=== PATIENT | female | born 1960 | race Caucasian/White ===

== ENCOUNTER 2016-04-26 21:02 | Emergency (ER) | payer MEDICAID, OTHER ==
[~2016-04-26] VITALS: Ht 165.1 cm; Wt 72.6 kg
[~2016-04-26 21:02] MED LIST: PRED20TA PO
[2016-04-26] MEDS ORDERED: PRED20TA PO (22:12)
[2016-04-26] MEDS ORDERED: DOXY100T PO (22:12)
[2016-04-26 22:15] VITALS: BP 111/53
--- NOTE | 2016-04-26 22:15 | PHYS DOC ---
General Chief Complaint: cough Stated Complaint: COUGH CONGESTION Time Seen by MD: 22:09 Source: patient Exam Limitations: no limitations Problems: History of Present Illness Initial Comments Pt is 55/F to ED c/o cough/congestion and nasal drainage x few days. Also having ear pains no drainage/trauma/hearing change. No fever/chills/n/v/MCKEON. States she can hear wheezing. No sob or chest pain. Timing/Duration: getting worse, other Severity: moderate Modifying Factors: worse with movement, improves with rest Associated Symptoms: cough, malaise, other Allergies: Coded Allergies: Penicillins (Verified Allergy, Unknown, 11/08/15) Sulfa (Sulfonamide Antibiotics) (Verified Allergy, Unknown, 11/08/15) amlodipine (Verified Allergy, Unknown, 11/08/15) aspirin (Verified Allergy, Unknown, 11/08/15) bupropion (Verified Allergy, Unknown, 11/08/15) codeine (Verified Allergy, Unknown, 11/08/15) haloperidol (Verified Allergy, Unknown, 11/08/15) ibuprofen (Verified Allergy, Unknown, 11/08/15) meperidine (Verified Allergy, Unknown, 11/08/15) niacin (Verified Allergy, Unknown, 11/08/15) Past Medical History Medical History: GERD Surgical History: noncontributory Social History Smoker: cigarettes Alcohol: none Drugs: none Review of Systems Constitutional: denies chills, denies diaphoresis, denies fever, malaise EENTM: see HPI ear paindenies ear discharge Respiratory: see HPIdenies shortness of breath Cardiovascular: denies chest pain, denies palpitations, denies syncope Gastrointestinal: denies diarrhea, denies nausea, denies vomiting Genitourinary: denies dysuria, denies frequency, denies hematuria Musculoskeletal: denies back pain, denies joint swelling, denies neck pain Psychiatric/Neurological: denies headache, denies numbness, denies paresthesia Physical Exam General Appearance: WD/WN, no apparent distress Eyes: bilateral eye EOMI, bilateral eye PERRL, bilateral eye normal inspection Ear, Nose, Throat: hearing grossly normal, other (R TM erythema/bulge, clear nasal/PND) Neck: non-tender, supple Respiratory: chest non-tender, no respiratory distress, wheezing Cardiovascular: normal peripheral pulses, regular rate, rhythm Gastrointestinal: non tender, soft Back: no CVA tenderness, no vertebral tenderness Extremities: non-tender, normal inspection Neurologic/Psychiatric: accreditation specialist II-XII nml as tested, no motor/sensory deficits, alert, normal mood/affect, oriented x 3 Skin: normal color, warm/dry Departure Time of Disposition: 22:13 Disposition: 01 HOME, SELF-CARE Diagnosis: COPD exacerbation, R otitis media Condition: GOOD Patient Instructions: Chronic Obstructive Pulmonary Disease Exacerbation, Easy- to-Read, Otitis Media, Adult Additional Instructions: OTC tylenol as needed. Use home albuterol MDI, 2 puffs every 4 hours and as needed. Rx: prednisone, doxycycline, take with food as directed. Follow up with your doctor in 1-2 weeks. Return to ED with new or changing symptoms. RICHARD COREA DO Apr 26, 2016 22:15
[2016-04-26] MEDS ORDERED: DOXYCYCLINE HYCLATE 100 MG TABLET PO ONE (22:45)
[2016-04-26] MEDS ORDERED: PREDNISONE 20 MG TABLET PO ONE (22:45)
[2016-04-26] MEDS ORDERED: IPRATRPIUM/ALBUTEROL 0.5/2.5MG 3 ML NEBU. NEB ONE (22:45)
== END 2016-04-26 22:55 | disposition home or self-care (01) ==
LOC: ER 21:05
DX: J44.1 Chronic obstructive pulmonary disease with (acute) exacerbation (principal); H66.91 Otitis media, unspecified, right ear; R05 Cough; K21.9 Gastro-esophageal reflux disease without esophagitis; F17.210 Nicotine dependence, cigarettes, uncomplicated; Z88.0 Allergy status to penicillin; Z88.2 Allergy status to sulfonamides; Z88.8 Allergy status to other drugs, medicaments and biological substances; Z88.6 Allergy status to analgesic agent
CPT/HCPCS: 94640; 99283; J7512; J7620

== ENCOUNTER 2017-02-25 18:21 | Emergency (ER) | payer SELFPAY ==
[~2017-02-25] VITALS: Ht 165.1 cm; Wt 70.0 kg
[~2017-02-25 18:21] MED LIST changes: +DOXY100T PO
[2017-02-25] MEDS ORDERED: HYDROmorphone PF 1 MG/ML DISP.SYRIN ONE (19:16)
[2017-02-25] MEDS ORDERED: HYDROmorphone PF 1 MG/ML DISP.SYRIN IM ONE (19:30)
[2017-02-25] MEDS ORDERED: PRED20TA PO (20:05)
[2017-02-25] MEDS ORDERED: ACYC400T PO (20:05)
--- NOTE | 2017-02-25 20:06 | PHYS DOC ---
Past History Past Medical History: Arthritis, COPD, GERD, Pneumonia, Other Past Surgical History: Cholecystectomy, Tonsillectomy Alcohol Use: None Drug Use: None Adult General Chief Complaint Chief Complaint: RIB PAIN HPI HPI She is a pleasant 56-year-old female with a history of chronic back pain, chronic scleroderma, COPD, hypertension, peripheral neuropathy who presents with rib pain that began 2 days ago after a question will twisting injury. Patient is noted pain is worse with range of motion breathing movements specifically over that spot of her lower ribs on the right. She has some localized redness as well with no clear rash over the area the pain does wrap around to the lateral side. She denies any fevers, chills, nausea, vomiting, diarrhea, shortness of breath, chest pain only this rib pain is worsened with range of motion and direct pressure. She denies any direct trauma or falls. She denies any night sweats, weight loss or other symptoms. Patient does still smoke pack a day she is on a pain contract with her local physician for chronic narcotic use. Took her hydrocodone 7. 08/17/24 today which is not helping her symptoms. Because she is under pain contract she was she cannot be prescribed any narcotics from this facility she just was just wanting to ensure that she has no rib fracture. Review of Systems Review of Systems Constitutional: Denies fever or chills [] Eyes: Denies change in visual acuity, redness, or eye pain [] HENT: Denies nasal congestion or sore throat [] Respiratory: Denies cough or shortness of breath [] Cardiovascular: No additional information not addressed in HPI [] GI: She complains of right lower rib pain without nausea vomiting diarrhea or constipation : Denies dysuria or hematuria [] Musculoskeletal: Does have chronic lower back pain or joint pain nothing new today[] Integument: Denies rash or skin lesions she admits to some slight redness to her abdominal wall over the pain she is describing Neurologic: Denies headache, focal weakness or sensory changes [] Endocrine: Denies polyuria or polydipsia [] All other systems were reviewed and found to be within normal limits, except as documented in this note. Current Medications Current Medications Current Medications Medications (Trade) Dose Ordered Sig/Caesar Start Time Stop Time Status Last Admin Dose Admin Hydromorphone HCl (Dilaudid) 1 mg STK-MED ONCE 02/25/17 19:16 02/25/17 19:17 DC Allergies Allergies Allergies Coded Allergies Type Severity Reaction Last Updated Verified Penicillins Allergy Unknown 11/08/15 Yes Sulfa (Sulfonamide Antibiotics) Allergy Unknown 11/08/15 Yes amlodipine Allergy Unknown 11/08/15 Yes aspirin Allergy Unknown 11/08/15 Yes bupropion Allergy Unknown 11/08/15 Yes codeine Allergy Unknown 11/08/15 Yes haloperidol Allergy Unknown 11/08/15 Yes ibuprofen Allergy Unknown 11/08/15 Yes meperidine Allergy Unknown 11/08/15 Yes niacin Allergy Unknown 11/08/15 Yes Physical Exam Physical Exam Patient is mildly tachycardic upon arrival likely secondary to pain Constitutional: As patient is mildly obese significant debilitated secondary to medical problems she is splinting secondary to the pain over her right ribs. She is no acute distress no respiratory distress HENT: Normocephalic, atraumatic, bilateral external ears normal, dry mucous membranes with poor dentition, no oral exudates, nose normal. [] Eyes: PERRLA, EOMI, conjunctiva normal, no discharge. [] Neck: Normal range of motion, no tenderness, supple, no stridor. [] Cardiovascular:Heart rate regular rhythm, no murmur my exam heart rate less than 100 she is resting quietly Lungs & Thorax: Bilateral breath sounds clear to auscultation she has significant tenderness to palpation over the right lower ribs. There is mild erythema soft tissue swelling along the T9-T10 distributions of the abdominal wall. There is no vesicles or rash noted clearly there is increased tenderness along this dermatome Abdomen: Bowel sounds normal, soft, no tenderness, no masses, no pulsatile masses. [] Skin: Warm, dry, no erythema, no rash. [] Back: She has noted redness along the T10 distribution as well as the back Neurologic: Alert and oriented X 3, normal motor function, normal sensory function, no focal deficits noted. [] Psychologic: She is mildly anxious speaking quite often about pain medications Current Patient Data Vital Signs Vital Signs Date Time Temp Pulse Resp B/P (MAP) Pulse Ox O2 Delivery O2 Flow Rate FiO2 02/25/17 18:30 97.6 103 20 97 Room Air EKG EKG [] Radiology/Procedures Radiology/Procedures [] Course & Med Decision Making Course & Med Decision Making Pertinent Labs and Imaging studies reviewed. (See chart for details) patient's rib series 5 view reviewed by me demonstrates no acute fracture no obvious air-fluid levels in the abdominal area no subdiaphragmatic air . She was noted to have hypotension on arrival which according to patient and family at the bedside is normal. She is asymptomatic with his blood pressure By concerned based on patient's really minimally traumatic injury to her ribs with localized swelling and redness along the dermatome 1910 it is possible early development of shingles. Patient will be placed on acyclovir and prednisone tablets symptoms and follow-up with her doctor she has pain medications and was given a dose of Dilaudid here which did help her symptoms. Impression: Rib pain, possible early shingles Dragon Disclaimer Dragon Disclaimer This electronic medical record was generated, in whole or in part, using a voice recognition dictation system. Departure Departure: Impression: Primary Impression: Chronic pain Additional Impressions: Shingles Rib pain on right side Disposition: HOME, SELF-CARE Condition: IMPROVED Referrals: KAYLEE FRANCIS (PCP) Patient Instructions: Rib Contusion, Shingles, [id number] Additional Instructions: discharge: I've spoken with the patient and/or caregivers. I've explained the patient's condition, diagnosis and treatment plan based on information available to me at this time. I've answered the patient's and/or caregivers questions and addressed any concerns. The patient and/or caregivers have a good understanding the patient's diagnosis, condition and treatment plan as can be expected at this point. Vital signs have been stabilized. The patient's condition is stable for discharge from the emergency department. The patient will pursue further outpatient evaluation with her primary care provider or other designated consulting physician as outlined in the discharge instructions. Patient and/or caregivers are agreeable to this plan of care and follow-up instructions have been explained in detail. The patient and/or caregivers have received these instructions in written format and expressed understanding of these discharge instructions. The patient and her caregivers are aware that if any significant change in condition or worsening of symptoms should prompt him to immediately return to this of the closest emergency department. If an emergent department is not readily available I would encourage him to call 911. Scripts Prednisone (PREDNISONE) 20 Mg Tablet 3 TAB PO DAILY for 5 Days, #15 TAB Prov: QUINTIN SERVIN MD 02/25/17 Acyclovir (ACYCLOVIR) 400 Mg Tablet 2 TAB PO 5XDAY for 10 Days, #100 TAB Prov: QUINTIN SERVIN MD 02/25/17 Problem Qualifiers QUINTIN SERVIN MD Feb 25, 2017 20:06
[2017-02-25 20:30] VITALS: BP 89/65
--- NOTE | 2017-02-26 08:12 | RAD ---
EXAM: Chest and right RIBS, 5 views. HISTORY: Pain. COMPARISON: None. FINDINGS: A frontal view of the chest and 4 views of the right ribs are obtained. There is linear opacity within the bilateral lower lungs likely due to atelectasis. There is no consolidation, effusion or pneumothorax. The heart is normal in size. There is a right shoulder arthroplasty. There are cholecystectomy clips. No acute or subacute displaced rib fracture is seen. IMPRESSION: 1. Bilateral lower lobe atelectasis. 2. No acute osseous finding.
== END 2017-02-25 20:30 | disposition home or self-care (01) ==
LOC: ER 18:21
DX: R07.81 Pleurodynia (principal); B02.9 Zoster without complications; G89.29 Other chronic pain; M54.5 Low back pain; M19.90 Unspecified osteoarthritis, unspecified site; J44.9 Chronic obstructive pulmonary disease, unspecified; K21.9 Gastro-esophageal reflux disease without esophagitis; Z88.6 Allergy status to analgesic agent; Z88.1 Allergy status to other antibiotic agents; Z88.5 Allergy status to narcotic agent; Z88.0 Allergy status to penicillin; Z88.2 Allergy status to sulfonamides; Z88.8 Allergy status to other drugs, medicaments and biological substances
CPT/HCPCS: 71101; 96372; 99284; J1170

== ENCOUNTER → 2017-05-11 | Outpatient (CLI) | payer OTHER ==
[~2017-05-11] MED LIST changes: +ACYC400T PO
--- NOTE | 2017-05-11 15:07 | RAD ---
Left elbow, 3 views, 05/11/2017: History: Elbow pain No fracture or dislocation is identified. No significant arthritic change is seen. There is no radiographic evidence of a joint effusion. Several nonspecific soft tissue calcifications are present posteriorly at the elbow and in the proximal forearm. These are likely posttraumatic. IMPRESSION: No acute bony abnormality is detected.
== END | disposition home or self-care (01) ==
LOC: DXRAD 11:41
PROVIDERS: ATTEND Nurse Practitioner
DX: M25.522 Pain in left elbow (principal); F17.200 Nicotine dependence, unspecified, uncomplicated
CPT/HCPCS: 73080

== ENCOUNTER 2017-11-01 17:24 | Emergency (ER) | payer MEDICARE, OTHER ==
[~2017-11-01] VITALS: Ht 317.5 cm; Wt 70.0 kg
--- NOTE | 2017-11-01 17:46 | RAD ---
Indication:CODE STROKE, RIGHT SIDE WEAKNESS, SLURRED SPEECH TECHNIQUE: CT head without IV contrast COMPARISON:Previous study from March 24, 2008 FINDINGS: No pathologic extra-axial or intra-axial fluid collection. The ventricles and basal cisterns are within normal limits. No acute intracranial bleed. No focal loss of yancey-white differentiation. Visualized orbits within normal limits. No suspicious bony lesion. IMPRESSION: No acute intracranial process. If concern for acute ischemic stroke is high, please consider MRI brain. Multiple unsuccessful attempts were made to reach ER department. Electronically signed by: Chauncey Holloway DO (11/01/2017 5:43 PM) [facility]
--- NOTE | 2017-11-01 17:49 | PHYS DOC ---
Past History Past Medical History: Arthritis, COPD, GERD, Pneumonia, Other Past Surgical History: Cholecystectomy, Tonsillectomy Alcohol Use: None Drug Use: None Adult General Chief Complaint Chief Complaint: ALTERED MENTAL STATUS [facility] HPI Patient is a 56-year-old female who presents for altered mental status via EMS. She lives at an assisted living facility called [place] [id number]. She has a h/o previous stroke. Apparently today 1500 she was out walking her dog and that was the last time that she was known to be normal. Upon arrival she has left facial droop severe slurring to the point that she is extremely difficult to understand and generalized weakness in all extremities. She is unable to hold any of her extremities up against gravity or to move them. She has some decreased responsiveness but is responsive to painful stimuli and sternal rub. She will open her eyes and look around. Her sister arrived shortly after her and is providing some history however she last saw her 3 days ago. She was recently seen at and had an MRI performed there. Code stroke was activated immediately upon arrival. Review of Systems Review of Systems Constitutional: Denies fever or chills [] Eyes: Denies change in visual acuity, redness, or eye pain [] HENT: Denies nasal congestion or sore throat [] Respiratory: Denies cough or shortness of breath [] Cardiovascular: No additional information not addressed in HPI [] GI: Denies abdominal pain, nausea, vomiting, bloody stools or diarrhea [] : Denies dysuria or hematuria [] Musculoskeletal: Denies back pain or joint pain [] Integument: Denies rash or skin lesions [] Neurologic: Denies headache, focal weakness or sensory changes [] Endocrine: Denies polyuria or polydipsia [] All other systems were reviewed and found to be within normal limits, except as documented in this note. Allergies Allergies Allergies Coded Allergies Type Severity Reaction Last Updated Verified Penicillins Allergy Unknown 11/08/15 Yes Sulfa (Sulfonamide Antibiotics) Allergy Unknown 11/08/15 Yes amlodipine Allergy Unknown 11/08/15 Yes aspirin Allergy Unknown 11/08/15 Yes bupropion Allergy Unknown 11/08/15 Yes codeine Allergy Unknown 11/08/15 Yes haloperidol Allergy Unknown 11/08/15 Yes ibuprofen Allergy Unknown 11/08/15 Yes meperidine Allergy Unknown 11/08/15 Yes niacin Allergy Unknown 7/24/16 Yes Physical Exam Physical Exam Constitutional: Well developed, well nourished, no acute distress, non-toxic appearance. [] HENT: Normocephalic, atraumatic, bilateral external ears normal, oropharynx moist, no oral exudates, nose normal. [] Eyes: PERRLA, EOMI, conjunctiva normal, no discharge. [] Neck: Normal range of motion, no tenderness, supple, no stridor. [] Cardiovascular:Heart rate regular rhythm, no murmur [] Lungs & Thorax: Bilateral breath sounds clear to auscultation [] Abdomen: Bowel sounds normal, soft, no tenderness, no masses, no pulsatile masses. [] Skin: Warm, dry, no erythema, no rash. [] Back: No tenderness, no CVA tenderness. [] Extremities: No tenderness, no cyanosis, no clubbing, ROM intact, no edema. [] Neurologic: Alert and oriented X 3, normal motor function, normal sensory function, no focal deficits noted. [] Psychologic: Affect normal, judgement normal, mood normal. [] EKG EKG [] Radiology/Procedures Radiology/Procedures [] Course & Med Decision Making Course & Med Decision Making Pertinent Labs and Imaging studies reviewed. (See chart for details) @1739 - called for transfer. @1746 - Pt's daughter (on phone with pt's sister who is present in the ED) states this is exactly the same presentation as the last time the pt had a stroke. @175 - On phone with Dr. Saleh (neuro) at . Pt's symptoms not localized, somewhat bizarre, not a TPA candidate based. At this time TPA is thought to be too high of a risk compared to the potential benefit. states she had a recent MRI which did not show any evidence of stroke. They would like to wait for labs before accepting transfer. @1809 - Pt care transferred from Dr. Brower to Dr. Lind at this time. Anticipate transfer to after labs result. @1901-Stroke specialist Dr. Crouch from [facility] called at 1900 and asking about patient condition and lab results. According to the nurse taking care of the patient she did not change from the time she came to the ER. Patient had blood pressure of 137/60 at time of evaluation and was not responding to verbal stimuli and not moving her extremities. Labs showed a white count of 13,000 with unremarkable electrolytes and cardiac test. Patient was not a candidate for TPA as explained above but was accepted by neurologist at 1900 for further evaluation. Dragon Disclaimer Dragon Disclaimer This electronic medical record was generated, in whole or in part, using a voice recognition dictation system. NIHSS Initial NIH is 24 Departure Departure: Impression: Primary Impression: Stroke-like symptoms Disposition: 02 XFER SHT-TRM HOSP (to [facility] at 1900) Condition: GUARDED Referrals: KAYLEE FRANCIS (PCP) CASE BROWER DO Nov 01, 2017 17:49 AFUA LIND MD Nov 01, 2017 19:28
[2017-11-01 18:06] LABS: BASO # 0.1 x10^3/uL (0.0-0.2); BASO % 1 % (0-3); EOS # 0.3 x10^3/uL (0.0-0.7); EOS % 2 % (0-3); HEMATOCRIT 43.2 % (36.0-47.0); HEMOGLOBIN 14.4 g/dL (12.0-15.5); LYMPH # 5.5 x10^3/uL (1.0-4.8); LYMPH % 42 % (24-48); MEAN CORPUSCULAR HEMOGLOBIN 29 pg (25-35); MEAN CORPUSCULAR HGB CONC 33 g/dL (31-37); MEAN CORPUSCULAR VOLUME 88 fL (79-100); MONO # 0.4 x10^3/uL (0.0-1.1); MONO % 3 % (0-9); NEUT # 6.7 x10^3uL (1.8-7.7); NEUT % 51 % (31-73); PLATELET COUNT 327 x10^3/uL (140-400); RED BLOOD COUNT 4.92 x10^6/uL (3.50-5.40); RED CELL DISTRIBUTION WIDTH 17.4 % (11.5-14.5)
[2017-11-01 18:18] LABS: CALCIUM 8.5 mg/dL (8.5-10.1); CREATININE 0.7 mg/dL (0.6-1.0); GFR 86.9; MAGNESIUM 2.2 mg/dL (1.8-2.4); POTASSIUM 4.7 mmol/L (3.5-5.1)
--- NOTE | 2017-11-01 18:26 | EKG ---
[address] [address] Test Date: 2017-11-01 Test Time: 18:12:21 Pat Name: JOSE DALY Department: Room: Gender: F Automatic [employer] Gr[employer] Operator: GREGORIO : 1960 Requested By: CASE BROWER Order Number: [id number] Reading MD: Measurements Intervals [place] Rate: 76 P: 32 IA: 176 QRS: -14 QRSD: 76 T: 13 QT: 404 QTc: 459 Interpretive Statements SINUS RHYTHM LEFTWARD AXIS OTHERWISE NORMAL ECG RI6.01 No previous ECG available for comparison
[2017-11-01 19:21] VITALS: BP 106/56
[2017-11-01 19:26] LABS: BACTERIA,URINE 0 /HPF (0-FEW); BARBITURATES NEG (NEG); BENZODIAZEPINES NEG (NEG); BILIRUBIN,URINE NEG (NEG); CANNABINOIDS NEG (NEG); CLARITY,URINE CLEAR; COCAINE NEG (NEG); COLOR,URINE YELLOW; GLUCOSE,URINE NEG (NEG); METHADONE NEG (NEG); NITRITE,URINE NEG (NEG); OPIATES POS (NEG); PHENCYCLIDINE NEG (NEG); RBC,URINE 0 /HPF (0-2); UROBILINOGEN,URINE 0.2 mg/dL (0.2 mg/dL); WBC,URINE 0 /HPF (0-4)
[2017-11-01 19:27] LABS: SQUAMOUS EPITHELIAL CELL,UR OCC /LPF
[2017-11-01 19:35] LABS: AMPHETAMINE/METHAMPHETAMINE NEG (NEG)
--- NOTE | 2017-11-01 20:28 | RAD ---
Indication:CODE STROKE, RIGHT SIDE WEAKNESS, SLURRED SPEECH TECHNIQUE:Portable AP chest X-ray COMPARISON: FINDINGS:Heart is normal in size. Lungs are clear. No pneumothorax or pleural effusion. Visualized bony thorax is within normal limits. IMPRESSION: No acute cardiopulmonary process. Electronically signed by: Chauncey Holloway DO (11/01/2017 8:25 PM) [facility]
== END 2017-11-01 20:15 | disposition short-term general hospital (02) ==
LOC: ER 17:24
DX: R41.82 Altered mental status, unspecified (principal); R29.810 Facial weakness; R53.1 Weakness; M19.90 Unspecified osteoarthritis, unspecified site; J44.9 Chronic obstructive pulmonary disease, unspecified; K21.9 Gastro-esophageal reflux disease without esophagitis; Z88.0 Allergy status to penicillin; Z88.6 Allergy status to analgesic agent; Z88.2 Allergy status to sulfonamides; Z88.5 Allergy status to narcotic agent; Z88.8 Allergy status to other drugs, medicaments and biological substances
CPT/HCPCS: 36415; 51702; 70450; 71045; 80048; 80307; 81001; 82947; 83605; 83735; 84484; 85025; 85610; 85730; 93005; 99285-25; G0479

== ENCOUNTER 2017-12-31 06:35 | Emergency (ER) | payer OTHER ==
[~2017-12-31] VITALS: Ht 165.1 cm; Wt 66.6 kg
[2017-12-31] MEDS ORDERED: valACYclovir 500 MG TABLET. PO STA (07:26)
--- NOTE | 2017-12-31 07:28 | PHYS DOC ---
Past History Past Medical History: Arthritis, COPD, GERD, Pneumonia, Other Past Surgical History: Cholecystectomy, Tonsillectomy Alcohol Use: None Drug Use: None Adult General Chief Complaint Chief Complaint: BACK PAIN - NO INJURY HPI HPI 67-year-old female who presents with left shoulder pain. Patient states that she has had increased pain for the last 1 week. The pain is a nearly constant aching sensation with stabbing pain that comes and goes. Patient denies any trauma. She has noticed a small rash of pinkish bumps go from her back around under her arm and just superior to the left breast. It does not cross the midline. Patient is already on [place] 5/325 and gabapentin 600 3 times a day for previous pain diagnoses. She states that the pain is worse with deep inspiration. She denies a cough or shortness of breath. No fever or chills. Review of Systems Review of Systems Constitutional: Denies fever or chills [] Eyes: Denies change in visual acuity, redness, or eye pain [] HENT: Denies nasal congestion or sore throat [] Respiratory: Denies cough or shortness of breath [] Cardiovascular: No additional information not addressed in HPI [] GI: Denies abdominal pain, nausea, vomiting, bloody stools or diarrhea [] : Denies dysuria or hematuria [] Musculoskeletal: Left shoulder pain [] Integument: Rash [] Neurologic: Denies headache, focal weakness or sensory changes [] Endocrine: Denies polyuria or polydipsia [] All other systems were reviewed and found to be within normal limits, except as documented in this note. Current Medications Current Medications Current Medications Medications (Trade) Dose Ordered Sig/Caesar Start Time Stop Time Status Last Admin Dose Admin Acetaminophen/ Hydrocodone Bitart (Lortab 5/325) 2 tab 1X ONCE 12/31/17 07:15 12/31/17 07:16 UNV Valacyclovir HCl (Valtrex) 1,000 mg 1X STAT 12/31/17 07:15 12/31/17 07:16 UNV Allergies Allergies Allergies Coded Allergies Type Severity Reaction Last Updated Verified Penicillins Allergy Unknown 11/08/15 Yes Sulfa (Sulfonamide Antibiotics) Allergy Unknown 11/08/15 Yes amlodipine Allergy Unknown 11/08/15 Yes aspirin Allergy Unknown 11/08/15 Yes bupropion Allergy Unknown 11/08/15 Yes codeine Allergy Unknown 11/08/15 Yes haloperidol Allergy Unknown 11/08/15 Yes ibuprofen Allergy Unknown 11/08/15 Yes meperidine Allergy Unknown 11/08/15 Yes niacin Allergy Unknown 11/08/15 Yes Physical Exam Physical Exam Constitutional: Well developed, well nourished, no acute distress, non-toxic appearance. [] HENT: Normocephalic, atraumatic, bilateral external ears normal, oropharynx moist, no oral exudates, nose normal. [] Eyes: PERRLA, EOMI, conjunctiva normal, no discharge. [] Neck: Normal range of motion, no tenderness, supple, no stridor. [] Cardiovascular:Heart rate regular rhythm, no murmur [] Lungs & Thorax: Bilateral breath sounds clear to auscultation [] Abdomen: Bowel sounds normal, soft, no tenderness, no masses, no pulsatile masses. [] Skin: Erythematous, raised patches with some confluence along the T2 or T3 dermatome on the left. No obvious vesicles.[] Back: No tenderness, no CVA tenderness. [] Extremities: No tenderness, no cyanosis, no clubbing, ROM intact, no edema. [] Neurologic: Alert and oriented X 3, normal motor function, normal sensory function, no focal deficits noted. [] Psychologic: Affect normal, judgement normal, mood normal. [] EKG EKG [] Radiology/Procedures Radiology/Procedures [] Impressions: Chest, 2 views, 12/31/2017: HISTORY: Chest pain with cough Comparison is made to a study from 11/01/2017. The heart size is normal. There is calcific plaquing of the aorta. The pulmonary vascularity is normal. No pulmonary infiltrate is seen. There is no evidence of pleural fluid. A right shoulder prosthesis is in place. IMPRESSION: No acute cardiopulmonary abnormality is detected. Electronically signed by: Clif Kam MD (12/31/2017 7:36 AM) [facility] DICTATED AND SIGNED BY: CLIF KAM MD DATE: 12/31/17 0735 CC: ARIS BAY DO; KAYLEE FRANCIS Course & Med Decision Making Course & Med Decision Making Pertinent Labs and Imaging studies reviewed. (See chart for details) Based on my examination, the patient appears to have shingles. I will treat her with an increase in her pain medication as well as a gram of valacyclovir in the ED. I will discharge her with a prescription for valacyclovir 1000 mg 3 times a day for 7 days. I will provide the patient with a short course of [place] 10/325 so that she will not go through her home medications before she is eligible for refill. She will follow up with her PCP for further pain management. [] Dragon Disclaimer Dragon Disclaimer This electronic medical record was generated, in whole or in part, using a voice recognition dictation system. Departure Departure: Referrals: KAYLEE FRANCIS (PCP) Scripts Valacyclovir Hcl (VALACYCLOVIR) 1,000 Mg Tablet 1 TAB PO TID, #21 TAB Prov: ARIS BAY DO 12/31/17 Hydrocodone Bit/Acetaminophen (NORCO 10-325 TABLET) 1 Each Tablet 1 TAB PO PRN Q6HRS PRN for PAIN, #10 TAB 0 Refills Prov: ARIS BAY DO 12/31/17 ARIS BAY DO Dec 31, 2017 07:28
[2017-12-31] MEDS ORDERED: HYDROcodone/APAP 5/325MG 1 TAB TABLET PO ONE (07:30)
--- NOTE | 2017-12-31 07:40 | RAD ---
Chest, 2 views, 12/31/2017: HISTORY: Chest pain with cough Comparison is made to a study from 11/01/2017. The heart size is normal. There is calcific plaquing of the aorta. The pulmonary vascularity is normal. No pulmonary infiltrate is seen. There is no evidence of pleural fluid. A right shoulder prosthesis is in place. IMPRESSION: No acute cardiopulmonary abnormality is detected. Electronically signed by: Clif Kam MD (12/31/2017 7:36 AM) [facility]
[2017-12-31 07:42] VITALS: BP 96/56
[2017-12-31] MEDS ORDERED: HYDR-963 PO (08:14)
[2017-12-31] MEDS ORDERED: VALA1000 PO (08:14)
== END 2017-12-31 08:21 | disposition home or self-care (01) ==
LOC: ER 06:35
DX: M25.512 Pain in left shoulder (principal); R21 Rash and other nonspecific skin eruption; R07.89 Other chest pain; L53.8 Other specified erythematous conditions; M19.90 Unspecified osteoarthritis, unspecified site; J44.9 Chronic obstructive pulmonary disease, unspecified; K21.9 Gastro-esophageal reflux disease without esophagitis; Z88.0 Allergy status to penicillin; Z88.2 Allergy status to sulfonamides; Z88.6 Allergy status to analgesic agent; Z88.5 Allergy status to narcotic agent; Z88.1 Allergy status to other antibiotic agents; Z88.8 Allergy status to other drugs, medicaments and biological substances
CPT/HCPCS: 71046; 99284

== ENCOUNTER 2018-03-30 13:15 | Emergency (ER) | payer OTHER ==
[~2018-03-30] VITALS: Ht 165.1 cm; Wt 68.0 kg
[~2018-03-30 13:15] MED LIST changes: +HYDR-3136 PO; +VALA1000 PO
--- NOTE | 2018-03-30 14:29 | RAD ---
Left knee radiograph 03/30/2018 1:53 PM INDICATION: Pain and swelling COMPARISON: None available. TECHNIQUE: 4 views of the left knee are provided. FINDINGS: There is no acute fracture or dislocation. There is a small knee joint effusion. Bone mineralization is within normal limits. Joint spaces are maintained. Regional soft tissues are within normal limits. There is no soft tissue gas or osseous erosion. IMPRESSION: No acute fracture or dislocation. Small knee joint effusion. Electronically signed by: Ade Weber MD (03/30/2018 2:25 PM) [id number]
--- NOTE | 2018-03-30 14:46 | PHYS DOC ---
Past History Past Medical History: Arthritis, High Cholesterol Past Surgical History: , Hysterectomy, Other Alcohol Use: None Drug Use: None Adult General Chief Complaint Chief Complaint: KNEE INJURY HPI HPI 57-year-old female presents with left knee pain. The patient denies any trauma or specific event that started pain. Pain has been increasing the last 3 days. Patient also feels as though he is swollen. She describes the pain as a squeezing sensation in the middle of her knee. She has not been on any long plane, training, or car rides. She has never had a DVT in the past. 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 The patient is using a 4 point cane to walk and help keep her balance. She states that the pain has made it feel like going to give out couple times. She has not fallen. She denies fever or chills. She denies any other injuries. Review of Systems Review of Systems Constitutional: Denies fever or chills [] Eyes: Denies change in visual acuity, redness, or eye pain [] HENT: Denies nasal congestion or sore throat [] Respiratory: Denies cough or shortness of breath [] Cardiovascular: No additional information not addressed in HPI [] GI: Denies abdominal pain, nausea, vomiting, bloody stools or diarrhea [] : Denies dysuria or hematuria [] Musculoskeletal: Left knee pain[] Integument: Denies rash or skin lesions [] Neurologic: Denies headache, focal weakness or sensory changes [] Endocrine: Denies polyuria or polydipsia [] All other systems were reviewed and found to be within normal limits, except as documented in this note. Allergies Allergies Allergies Coded Allergies Type Severity Reaction Last Updated Verified Penicillins Allergy Unknown 11/08/15 Yes Sulfa (Sulfonamide Antibiotics) Allergy Unknown 11/08/15 Yes amlodipine Allergy Unknown 11/08/15 Yes aspirin Allergy Unknown 11/08/15 Yes bupropion Allergy Unknown 11/08/15 Yes codeine Allergy Unknown 11/08/15 Yes doxycycline Allergy Unknown 12/31/17 Yes haloperidol Allergy Unknown 11/08/15 Yes ibuprofen Allergy Unknown 11/08/15 Yes meperidine Allergy Unknown 11/08/15 Yes niacin Allergy Unknown 11/08/15 Yes Physical Exam Physical Exam Constitutional: Well developed, well nourished, no acute distress, non-toxic appearance. [] HENT: Normocephalic, atraumatic, bilateral external ears normal, oropharynx moist, no oral exudates, nose normal. [] Eyes: PERRLA, EOMI, conjunctiva normal, no discharge. [] Neck: Normal range of motion, no tenderness, supple, no stridor. [] Cardiovascular:Heart rate regular rhythm, no murmur [] Lungs & Thorax: Bilateral breath sounds clear to auscultation [] Abdomen: Bowel sounds normal, soft, no tenderness, no masses, no pulsatile masses. [] Skin: Warm, dry, no erythema, no rash. [] Back: No tenderness, no CVA tenderness. [] Extremities: Left knee pain, no ligamentous laxity, minimal swelling, no ecchymosis, mild pain with valgus stress.[] Neurologic: Alert and oriented X 3, normal motor function, normal sensory function, no focal deficits noted. [] Psychologic: Affect normal, judgement normal, mood normal. [] Current Patient Data Vital Signs Vital Signs Date Time Temp Pulse Resp B/P (MAP) Pulse Ox O2 Delivery O2 Flow Rate FiO2 03/30/18 13:42 98.4 87 18 98 Room Air EKG EKG [] Radiology/Procedures Radiology/Procedures [] Impressions: Left knee radiograph 03/30/2018 1:53 PM INDICATION: Pain and swelling COMPARISON: None available. TECHNIQUE: 4 views of the left knee are provided. FINDINGS: There is no acute fracture or dislocation. There is a small knee joint effusion. Bone mineralization is within normal limits. Joint spaces are maintained. Regional soft tissues are within normal limits. There is no soft tissue gas or osseous erosion. IMPRESSION: No acute fracture or dislocation. Small knee joint effusion. Electronically signed by: Sigrid Weber MD (03/30/2018 2:25 PM) [id number] DICTATED AND SIGNED BY: SIGRID WEBER MD DATE: 03/30/18 1424 CC: ARIS [place] DO; KAYLEE FRANCIS Course & Med Decision Making Course & Med Decision Making Pertinent Labs and Imaging studies reviewed. (See chart for details) Patient's x-rays negative for fracture. She has a small joint effusion. Believe this could either be an acute strain of the knee or possibly a meniscal tear. I will advise conservative Rice therapy at this time. The patient is already on tramadol for elbow pain. I will give her a short course of [place] 5/325 and recommended she follow up with her PCP. [] Dragon Disclaimer Dragon Disclaimer This electronic medical record was generated, in whole or in part, using a voice recognition dictation system. Departure Departure: Referrals: KAYLEE FRANCIS (PCP) ARIS BAY DO Mar 30, 2018 14:46
[2018-03-30] MEDS ORDERED: HYDR-3165 PO (14:49)
[2018-03-30] MEDS ORDERED: HYDROcodone/APAP 5/325MG 1 TAB TABLET PO ONE (15:00)
[2018-03-30 15:25] VITALS: BP 92/78
== END 2018-03-30 15:26 | disposition home or self-care (01) ==
LOC: ER 13:15
DX: M25.462 Effusion, left knee (principal); M19.90 Unspecified osteoarthritis, unspecified site; E78.00 Pure hypercholesterolemia, unspecified; Z88.0 Allergy status to penicillin; Z88.2 Allergy status to sulfonamides; Z88.1 Allergy status to other antibiotic agents; Z88.6 Allergy status to analgesic agent; Z88.5 Allergy status to narcotic agent; Z88.8 Allergy status to other drugs, medicaments and biological substances
CPT/HCPCS: 73564; 99283

== ENCOUNTER 2018-04-13 17:57 | Emergency (ER) | payer OTHER ==
[~2018-04-13 17:57] MED LIST changes: +HYDR-3165 PO
--- NOTE | 2018-04-13 18:00 | ED.ADGEN ---
Past History Past Medical History: Arthritis, High Cholesterol, UTI, Other Past Surgical History: , Hysterectomy, Other Past Surgical History Back Smoking: Cigarettes Alcohol Use: None Drug Use: None Adult General Chief Complaint Chief Complaint ".. I having a lot more pain in my lower back...since the weather changed,,.. My doctors called in some Tramadol for me..."..." But when my arthritis and pain get this bad... I go to the Emergency room..." HPI HPI Patient is a 57 year old female who presents with above hx and complaints aspiration of her rheumatological conditions of scleroderma, CREST, rheumatoid arthritis and low back pain. Patient denies any trauma. Patient denies any fevers. Patient denies any specific history immunosuppression except for her chronic rheumatological conditions. No recent travel or specific ill contacts. Denies any fevers. Patient denies any problems with defecation or urination. Patient normally follows with Dr. Ugalde is a primary. She also follows with rheumatology and chronic pain clinic.. Patient has been called in a prescription for tramadol. Review of Systems Review of Systems Constitutional: Denies fever or chills [] Eyes: Denies change in visual acuity, redness, or eye pain [] HENT: Denies nasal congestion or sore throat [] Respiratory: Denies cough or shortness of breath [] Cardiovascular: No additional information not addressed in HPI [] GI: Denies abdominal pain, nausea, vomiting, bloody stools or diarrhea [] : Denies dysuria or hematuria [] Musculoskeletal: Exacerbation patient of chronic back pain and joint pain [] Integument: Denies rash or skin lesions [] Neurologic: Denies headache, focal weakness or sensory changes [] Endocrine: Denies polyuria or polydipsia [] All other systems were reviewed and found to be within normal limits, except as documented in this note. Family History Family History Noncontributory Current Medications Current Medications Current Medications Medications (Trade) Dose Ordered Sig/Caesar Start Time Stop Time Status Last Admin Dose Admin Methylprednisolone Acetate (DEPO-Medrol IM) 40 mg 1X ONCE 04/13/18 18:30 04/13/18 18:31 DC 04/13/18 18:36 40 MG Morphine Sulfate (Morphine 10mg Syringe) 10 mg 1X ONCE 04/13/18 18:30 04/13/18 18:31 DC 04/13/18 18:34 10 MG Nitrofurantoin Macrocrystals (Macrobid) 100 mg STK-MED ONCE 04/13/18 20:06 04/13/18 20:08 DC Orphenadrine Citrate (Norflex) 60 mg 1X ONCE 04/13/18 18:30 04/13/18 18:31 DC 04/13/18 18:38 60 MG Allergies Allergies Allergies Coded Allergies Type Severity Reaction Last Updated Verified Penicillins Allergy Unknown 04/13/18 Yes Sulfa (Sulfonamide Antibiotics) Allergy Unknown 04/13/18 Yes amlodipine Allergy Unknown 04/13/18 Yes aspirin Allergy Unknown 04/13/18 Yes bupropion Allergy Unknown 04/13/18 Yes codeine Allergy Unknown 04/13/18 Yes doxycycline Allergy Unknown 04/13/18 Yes haloperidol Allergy Unknown 04/13/18 Yes ibuprofen Allergy Unknown 04/13/18 Yes meperidine Allergy Unknown 04/13/18 Yes niacin Allergy Unknown 04/13/18 Yes Physical Exam Physical Exam Constitutional: Moderately acute distress, non-toxic appearance. [] HENT: Normocephalic, atraumatic, bilateral external ears normal, oropharynx moist, no oral exudates, nose normal. [] Eyes: PERRLA, EOMI, conjunctiva normal, no discharge. [] Neck: Normal range of motion, no tenderness, supple, no stridor. [] Cardiovascular:Heart rate regular rhythm, aortic murmur Lungs & Thorax: Bilateral breath sounds equal apex with scattered wheezes auscultation [] Abdomen: Bowel sounds normal, soft, no tenderness, no masses, no pulsatile masses. Old surgical scars. Skin: Warm, dry, no erythema, no rash. [] Poor turgor. Back: Lumbar Paraspinal and Sacral muscle tenderness, no CVA tenderness. [] No mid line tenderness. Extremities: Generalized joint tenderness, no cyanosis, no clubbing, ROM intact , no edema. [] Arthritic changes. Does walk with a cane. Rt. shoulder scar. Neurologic: Alert and oriented X 3, normal motor function, normal sensory function, no focal deficits noted. []DTRs +2 patella. Psychologic: Affect anxious, judgement normal, mood depressed . . Current Patient Data Vital Signs Vital Signs Date Time Temp Pulse Resp B/P (MAP) Pulse Ox O2 Delivery O2 Flow Rate FiO2 12/28/18 20:00 87 20 103/55 (71) 95 Room Air 04/13/18 17:57 98.1 Lab Results Laboratory Tests Test 04/13/18 18:25 Urine Collection Type Unknown Urine Color Yellow Urine Clarity Clear Urine pH 6.5 Urine Specific [place] 1.020 Urine Protein Neg (NEG-TRACE) Urine Glucose (UA) Neg mg/dL (NEG) Urine Ketones (Stick) Neg mg/dL (NEG) Urine Blood Neg (NEG) Urine Nitrite Neg (NEG) Urine Bilirubin Neg (NEG) Urine Urobilinogen Dipstick 0.2 mg/dL (0.2 mg/dL) Urine Leukocyte Esterase Mod (NEG) Urine RBC 0 /HPF (0-2) Urine WBC 11-20 /HPF (0-4) Urine Squamous Epithelial Cells Occ /LPF Urine Transitional Epithelial Cells Occ /LPF Urine Bacteria Few /HPF (0-FEW) Urine Mucus Slight /LPF Urine Opiates Screen Neg (NEG) Urine Methadone Screen Neg (NEG) Urine Barbiturates Neg (NEG) Urine Phencyclidine Screen Neg (NEG) Urine Amphetamine/Methamphetamine Neg (NEG) Urine Benzodiazepines Screen Neg (NEG) Urine Cocaine Screen Neg (NEG) Urine Cannabinoids Screen Neg (NEG) Urine Ethyl Alcohol Neg (NEG) EKG EKG [] Radiology/Procedures Radiology/Procedures [] Course & Med Decision Making Course & Med Decision Making Pertinent Labs and Imaging studies reviewed. (See chart for details). Discussed options of treatment with patient- elects to have tx. with Depo medrol , muscle relaxers and IM injection pain meds.. Declined labs and x- rays. Patient take Macrobid for UTI and follow up cultures and push Vit. C- drinks. Return if any concerns. Must follow-up with pain center Patient take tramadol as previous directed. Patient follow-up of her pain specialist. Patient follow-up primary care. Patient follow-up cultures taken here. [] Final Impression Final Impression 1. Acute on Chronic Back Pain 2. UTI[] 3. History of arthritis, rheumatoid, scleroderma,CREST syndrome Dragon Disclaimer Dragon Disclaimer This electronic medical record was generated, in whole or in part, using a voice recognition dictation system. Dragon Disclaimer This chart was dictated in whole or in part using Voice Recognition software in a busy, high-work load, and often noisy Emergency Department environment. It may contain unintended and wholly unrecognized errors or omissions. Dragon Disclaimer This chart was dictated in whole or in part using Voice Recognition software in a busy, high-work load, and often noisy Emergency Department environment. It may contain unintended and wholly unrecognized errors or omissions. Discharge Summary Visit Information Final Diagnosis Problems Medical Problems: (1) Back pain Status: Acute (2) Chronic pain Status: Acute Brief Hospital Course Allergies Allergies Coded Allergies Type Severity Reaction Last Updated Verified Penicillins Allergy Unknown 04/13/18 Yes Sulfa (Sulfonamide Antibiotics) Allergy Unknown 04/13/18 Yes amlodipine Allergy Unknown 04/13/18 Yes aspirin Allergy Unknown 04/13/18 Yes bupropion Allergy Unknown 04/13/18 Yes codeine Allergy Unknown 04/13/18 Yes doxycycline Allergy Unknown 04/13/18 Yes haloperidol Allergy Unknown 04/13/18 Yes ibuprofen Allergy Unknown 04/13/18 Yes meperidine Allergy Unknown 04/13/18 Yes niacin Allergy Unknown 04/13/18 Yes Vital Signs Vital Signs Date Time Temp Pulse Resp B/P (MAP) Pulse Ox O2 Delivery O2 Flow Rate FiO2 04/13/18 20:00 87 20 103/55 (71) 95 Room Air 04/13/18 17:57 98.1 Lab Results Laboratory Tests Test 04/13/18 18:25 Urine Collection Type Unknown Urine Color Yellow Urine Clarity Clear Urine pH 6.5 Urine Specific [place] 1.020 Urine Protein Neg (NEG-TRACE) Urine Glucose (UA) Neg mg/dL (NEG) Urine Ketones (Stick) Neg mg/dL (NEG) Urine Blood Neg (NEG) Urine Nitrite Neg (NEG) Urine Bilirubin Neg (NEG) Urine Urobilinogen Dipstick 0.2 mg/dL (0.2 mg/dL) Urine Leukocyte Esterase Mod (NEG) Urine RBC 0 /HPF (0-2) Urine WBC 11-20 /HPF (0-4) Urine Squamous Epithelial Cells Occ /LPF Urine Transitional Epithelial Cells Occ /LPF Urine Bacteria Few /HPF (0-FEW) Urine Mucus Slight /LPF Urine Opiates Screen Neg (NEG) Urine Methadone Screen Neg (NEG) Urine Barbiturates Neg (NEG) Urine Phencyclidine Screen Neg (NEG) Urine Amphetamine/Methamphetamine Neg (NEG) Urine Benzodiazepines Screen Neg (NEG) Urine Cocaine Screen Neg (NEG) Urine Cannabinoids Screen Neg (NEG) Urine Ethyl Alcohol Neg (NEG) Brief Hospital Course Ms. Kim is a 57 old female who presented with exacerbation chronic arthritic pain and UTI. Discharge Information Condition at Discharge: Stable Disposition/Orders: D/C to Home Dischare Medications Current Medications Morphine Sulfate (Morphine 10mg Syringe) 10 mg 1X ONCE SQ Last administered on 04/13/18at 18:34; Admin Dose 10 MG; Start 04/13/18 at 18:30; Stop 04/13/18 at 18:31; Status DC Methylprednisolone Acetate (DEPO-Medrol IM) 40 mg 1X ONCE IM Last administered on 04/13/18at 18:36; Admin Dose 40 MG; Start 04/13/18 at 18:30; Stop 04/13/18 at 18:31; Status DC Orphenadrine Citrate (Norflex) 60 mg 1X ONCE IM Last administered on at 18:38; Admin Dose 60 MG; Start 04/13/18 at 18:30; Stop 04/13/18 at 18:31 ; Status DC Nitrofurantoin Macrocrystals (Macrobid) 100 mg BID PO ; Start 04/13/18 at 21:00 ; Status UNV Nitrofurantoin Macrocrystals (Macrobid) 100 mg 1X ONCE PO Last administered on 04/13/18at 20:13; Admin Dose 100 MG; Start 04/13/18 at 20:15; Stop at 20:16; Status DC Nitrofurantoin Macrocrystals (Macrobid) 100 mg STK-MED ONCE PO ; Start at 20:06; Stop 04/13/18 at 20:08; Status DC Active Scripts Active Macrobid 100 Mg Capsule (Nitrofurantoin Monohyd/M-Cryst) 100 Mg Capsule 100 Mg PO BID 7 Days [place] 5-325 Tablet (Hydrocodone Bit/Acetaminophen) 1 Each Tablet 1 Tab PO PRN Q6HRS PRN Valacyclovir (Valacyclovir Hcl) 1,000 Mg Tablet 1 Tab PO TID [place] 10-325 Tablet (Hydrocodone Bit/Acetaminophen) 1 Each Tablet 1 Tab PO PRN Q6HRS PRN Prednisone 20 Mg Tablet 3 Tab PO DAILY 5 Days Acyclovir 400 Mg Tablet 2 Tab PO 5XDAY 10 Days Prednisone 20 Mg Tablet 1 Tab PO BID Doxycycline Hyclate 100 Mg Tablet 1 Tab PO BID Prednisone 20 Mg Tablet 1 Tab PO BID Discharge Summary Visit Information Final Diagnosis Problems Medical Problems: (1) Back pain Status: Acute (2) Chronic pain Status: Acute Brief Hospital Course Allergies Allergies Coded Allergies Type Severity Reaction Last Updated Verified Penicillins Allergy Unknown 04/13/18 Yes Sulfa (Sulfonamide Antibiotics) Allergy Unknown 04/13/18 Yes amlodipine Allergy Unknown 04/13/18 Yes aspirin Allergy Unknown 04/13/18 Yes bupropion Allergy Unknown 04/13/18 Yes codeine Allergy Unknown 04/13/18 Yes doxycycline Allergy Unknown 04/13/18 Yes haloperidol Allergy Unknown 04/13/18 Yes ibuprofen Allergy Unknown 04/13/18 Yes meperidine Allergy Unknown 04/13/18 Yes niacin Allergy Unknown 04/13/18 Yes Vital Signs Vital Signs Date Time Temp Pulse Resp B/P (MAP) Pulse Ox O2 Delivery O2 Flow Rate FiO2 04/13/18 20:00 87 20 103/55 (71) 95 Room Air 04/13/18 17:57 98.1 Lab Results Laboratory Tests Test 04/13/18 18:25 Urine Collection Type Unknown Urine Color Yellow Urine Clarity Clear Urine pH 6.5 Urine Specific [place] 1.020 Urine Protein Neg (NEG-TRACE) Urine Glucose (UA) Neg mg/dL (NEG) Urine Ketones (Stick) Neg mg/dL (NEG) Urine Blood Neg (NEG) Urine Nitrite Neg (NEG) Urine Bilirubin Neg (NEG) Urine Urobilinogen Dipstick 0.2 mg/dL (0.2 mg/dL) Urine Leukocyte Esterase Mod (NEG) Urine RBC 0 /HPF (0-2) Urine WBC 11-20 /HPF (0-4) Urine Squamous Epithelial Cells Occ /LPF Urine Transitional Epithelial Cells Occ /LPF Urine Bacteria Few /HPF (0-FEW) Urine Mucus Slight /LPF Urine Opiates Screen Neg (NEG) Urine Methadone Screen Neg (NEG) Urine Barbiturates Neg (NEG) Urine Phencyclidine Screen Neg (NEG) Urine Amphetamine/Methamphetamine Neg (NEG) Urine Benzodiazepines Screen Neg (NEG) Urine Cocaine Screen Neg (NEG) Urine Cannabinoids Screen Neg (NEG) Urine Ethyl Alcohol Neg (NEG) Brief Hospital Course Ms. Kim is a 57 old female who presented with exacerbation of chronic back pain. Discharge Information Condition at Discharge: Improved Disposition/Orders: D/C to Home Dischare Medications Current Medications Morphine Sulfate (Morphine 10mg Syringe) 10 mg 1X ONCE SQ Last administered on 04/13/18at 18:34; Admin Dose 10 MG; Start 04/13/18 at 18:30; Stop 04/13/18 at 18:31; Status DC Methylprednisolone Acetate (DEPO-Medrol IM) 40 mg 1X ONCE IM Last administered on 04/13/18at 18:36; Admin Dose 40 MG; Start 04/13/18 at 18:30; Stop 04/13/18 at 18:31; Status DC Orphenadrine Citrate (Norflex) 60 mg 1X ONCE IM Last administered on at 18:38; Admin Dose 60 MG; Start 04/13/18 at 18:30; Stop 04/13/18 at 18:31 ; Status DC Nitrofurantoin Macrocrystals (Macrobid) 100 mg BID PO ; Start 04/13/18 at 21:00 ; Status UNV Nitrofurantoin Macrocrystals (Macrobid) 100 mg 1X ONCE PO Last administered on 04/13/18at 20:13; Admin Dose 100 MG; Start 04/13/18 at 20:15; Stop at 20:16; Status DC Nitrofurantoin Macrocrystals (Macrobid) 100 mg STK-MED ONCE PO ; Start at 20:06; Stop 04/13/18 at 20:08; Status DC Active Scripts Active Macrobid 100 Mg Capsule (Nitrofurantoin Monohyd/M-Cryst) 100 Mg Capsule 100 Mg PO BID 7 Days [place] 5-325 Tablet (Hydrocodone Bit/Acetaminophen) 1 Each Tablet 1 Tab PO PRN Q6HRS PRN Valacyclovir (Valacyclovir Hcl) 1,000 Mg Tablet 1 Tab PO TID [place] 10-325 Tablet (Hydrocodone Bit/Acetaminophen) 1 Each Tablet 1 Tab PO PRN Q6HRS PRN Prednisone 20 Mg Tablet 3 Tab PO DAILY 5 Days Acyclovir 400 Mg Tablet 2 Tab PO 5XDAY 10 Days Prednisone 20 Mg Tablet 1 Tab PO BID Doxycycline Hyclate 100 Mg Tablet 1 Tab PO BID Prednisone 20 Mg Tablet 1 Tab PO BID DOYLE GÓMEZ MD Apr 13, 2018 18:00
[2018-04-13] MEDS ORDERED: ORPHENADRINE CITRATE 60 MG/2 ML VIAL. IM ONE (18:30)
[2018-04-13] MEDS ORDERED: methylPREDNISolone ACETATE 40 MG/ML VIAL. IM ONE (18:30)
[2018-04-13] MEDS ORDERED: MORPHINE SULFATE 10 MG/ML SYRINGE. SQ ONE (18:30)
[2018-04-13 19:01] LABS: AMPHETAMINE/METHAMPHETAMINE NEG (NEG); BARBITURATES NEG (NEG); BENZODIAZEPINES NEG (NEG); CANNABINOIDS NEG (NEG); COCAINE NEG (NEG); METHADONE NEG (NEG); OPIATES NEG (NEG); PHENCYCLIDINE NEG (NEG)
[2018-04-13 19:10] LABS: BACTERIA,URINE FEW /HPF (0-FEW); BILIRUBIN,URINE NEG (NEG); CLARITY,URINE CLEAR; COLOR,URINE YELLOW; GLUCOSE,URINE NEG (NEG); NITRITE,URINE NEG (NEG); RBC,URINE 0 /HPF (0-2); SQUAMOUS EPITHELIAL CELL,UR OCC /LPF; UROBILINOGEN,URINE 0.2 mg/dL (0.2 mg/dL)
[2018-04-13] MEDS ORDERED: NITR100C62 PO (19:58)
[2018-04-13 20:00] VITALS: BP 103/55
[2018-04-13] MEDS ORDERED: NITROFURANTOIN MONOHYD/M-CRYST 100 MG CAPSULE. PO ONE ×2 (20:06→20:15)
[2018-04-13] MEDS ORDERED: NITROFURANTOIN MONOHYD/M-CRYST 100 MG CAPSULE. PO SCH (21:00)
== END 2018-04-13 20:15 | disposition home or self-care (01) ==
LOC: ER 17:57
DX: G89.29 Other chronic pain (principal); M54.5 Low back pain; N39.0 Urinary tract infection, site not specified; M06.9 Rheumatoid arthritis, unspecified; M34.9 Systemic sclerosis, unspecified; M34.1 CR(E)ST syndrome; F17.210 Nicotine dependence, cigarettes, uncomplicated; E78.00 Pure hypercholesterolemia, unspecified; Z87.440 Personal history of urinary (tract) infections; Z98.890 Other specified postprocedural states; Z90.710 Acquired absence of both cervix and uterus; Z88.0 Allergy status to penicillin; Z88.2 Allergy status to sulfonamides; Z88.6 Allergy status to analgesic agent; Z88.5 Allergy status to narcotic agent; Z88.1 Allergy status to other antibiotic agents; Z88.8 Allergy status to other drugs, medicaments and biological substances
CPT/HCPCS: 36415; 80307; 81001; 87086; 96372; 99283; J1030; J2270; J2360

== ENCOUNTER 2018-11-07 07:48 | Emergency (ER) | payer OTHER ==
[~2018-11-07] VITALS: Ht 165.1 cm; Wt 72.0 kg
[~2018-11-07 07:48] MED LIST changes: +NITR100C62 PO
[2018-11-07 07:54] VITALS: BP 142/70
--- NOTE | 2018-11-07 08:22 | PHYS DOC ---
Past History Past Medical History: Arthritis, High Cholesterol, UTI, Other Past Surgical History: , Hysterectomy, Other Additional Past Surgical Histo: elbow bursa surgery Smoking: Cigarettes Alcohol Use: Occasionally Drug Use: None Adult General Chief Complaint Chief Complaint: ELBOW PROBLEM HPI HPI Patient is a 57-year-old female presents complaining of left arm and hand pain. She had repeat surgery for elbow bursa surgery 2 days ago at . She started having increasing pain and swelling in her hand yesterday. She reports keeping it elevated. She reports that her oxycodone is not managing the pain. Reports the pain is severe. She reports calling the office yesterday being advised to keep it elevated and to take extra acetaminophen in between doses of the oxycodone. She reports that her fingers were cold yesterday. They are no longer cold.[] Review of Systems Review of Systems Constitutional: Denies fever or chills [] Eyes: Denies change in visual acuity, redness, or eye pain [] HENT: Denies nasal congestion or sore throat [] Respiratory: Denies cough or shortness of breath [] Cardiovascular: No chest pain or palpitations[] GI: Denies abdominal pain, nausea, vomiting, bloody stools or diarrhea [] : Denies dysuria or hematuria [] Musculoskeletal: Denies back pain, see history of present illness[] Integument: Denies rash or skin lesions [] Neurologic: Denies headache, focal weakness or sensory changes [] Endocrine: Denies polyuria or polydipsia [] All other systems were reviewed and found to be within normal limits, except as documented in this note. Current Medications Current Medications Current Medications Medications (Trade) Dose Ordered Sig/Caesar Start Time Stop Time Status Last Admin Dose Admin Oxycodone/ Acetaminophen (Percocet 5/325) 1 tab 1X ONCE 11/07/18 08:15 11/07/18 08:16 UNV Allergies Allergies Allergies Coded Allergies Type Severity Reaction Last Updated Verified Penicillins Allergy Unknown 04/13/18 Yes Sulfa (Sulfonamide Antibiotics) Allergy Unknown 04/13/18 Yes amlodipine Allergy Unknown 04/13/18 Yes aspirin Allergy Unknown 04/13/18 Yes bupropion Allergy Unknown 04/13/18 Yes codeine Allergy Unknown 04/13/18 Yes doxycycline Allergy Unknown 04/13/18 Yes haloperidol Allergy Unknown 04/13/18 Yes ibuprofen Allergy Unknown 04/13/18 Yes meperidine Allergy Unknown 04/13/18 Yes niacin Allergy Unknown 04/13/18 Yes Physical Exam Physical Exam Constitutional: Well developed, well nourished, no acute distress, non-toxic appearance. [] HENT: Normocephalic, atraumatic, bilateral external ears normal, oropharynx moist, no oral exudates, nose normal. [] Eyes: PERRLA, EOMI, conjunctiva normal, no discharge. [] Neck: Normal range of motion, no tenderness, supple, no stridor. [] Cardiovascular:Heart rate regular rhythm, no murmur [] Lungs & Thorax: Bilateral breath sounds clear to auscultation [] Abdomen: Not examined. [] Skin: Warm, dry, no erythema, no rash. [] Back: No tenderness, no CVA tenderness. [] Extremities: Left upper extremity: Splint is clean and dry. There is swelling in the hand. She has full active range of motion. Capillary refill is less than 2 seconds. The other 3 extremities show: No tenderness, no cyanosis, no clubbing, ROM intact, no edema. [] Neurologic: Alert and oriented X 3, normal motor function, normal sensory function, no focal deficits noted. [] Psychologic: Affect normal, judgement normal, mood normal. [] Current Patient Data Vital Signs Vital Signs Date Time Temp Pulse Resp B/P (MAP) Pulse Ox O2 Delivery O2 Flow Rate FiO2 11/07/18 07:54 98.2 92 16 97 Room Air EKG EKG [] Radiology/Procedures Radiology/Procedures [] Course & Med Decision Making Course & Med Decision Making Pertinent Labs and Imaging studies reviewed. (See chart for details) ED course: Patient arrived, was placed in bed, and tolerated exam well. The splint was removed without complications. She reported feeling much better after it had been cut off. The incision on the posterior aspect of her elbow appears clean and dry. She was kept on a pillow for elevation while attempting to contact the surgeon who performed the procedure, Dr. Caballero. Discussed the care with the surgeon. He had no additional to the plan. He will follow up with her as scheduled. Splint was applied. She was distally neurovascularly intact after the splint application. She was discharged in improved condition with all questions answered. Medical decision making: There is no evidence of a wound infection. This appears to have been a case where the splinting material was too tight. There is no evidence of neurologic or vascular compromise. No evidence of a compartment syndrome. [] Dragon Disclaimer Dragon Disclaimer This electronic medical record was generated, in whole or in part, using a voice recognition dictation system. Departure Departure: Impression: Primary Impression: Visit for wound check Disposition: HOME, SELF-CARE Condition: IMPROVED Referrals: KAYLEE FRANCIS (PCP) Follow-up in 2 days Patient Instructions: Cast or Splint Care, Sling Use After Injury or Surgery Additional Instructions: Follow-up with your orthopedic surgeon as scheduled. Keep your arm elevated. Keep the splint clean and dry. Return to the ER if worsening pain or any other concerns. BERTHA ALANIS DO Nov 07, 2018 08:22
[2018-11-07] MEDS ORDERED: oxyCODONE/APAP 5/325 1 TAB TABLET PO ONE (08:30)
== END 2018-11-07 09:01 | disposition home or self-care (01) ==
LOC: ER 07:48
DX: Z48.01 Encounter for change or removal of surgical wound dressing (principal); M79.602 Pain in left arm; M79.642 Pain in left hand; R22.32 Localized swelling, mass and lump, left upper limb; E78.00 Pure hypercholesterolemia, unspecified; M19.90 Unspecified osteoarthritis, unspecified site; F17.210 Nicotine dependence, cigarettes, uncomplicated; Z87.440 Personal history of urinary (tract) infections; Z98.890 Other specified postprocedural states; Z88.0 Allergy status to penicillin; Z88.2 Allergy status to sulfonamides; Z88.6 Allergy status to analgesic agent; Z88.1 Allergy status to other antibiotic agents; Z88.8 Allergy status to other drugs, medicaments and biological substances
CPT/HCPCS: 29125; 99283